=== PATIENT | male | born 1990 | race African-American/Black ===

== ENCOUNTER 2017-07-31 17:01 | Emergency (ER) | payer MEDICAID ==
[~2017-07-31] VITALS: Ht 180.3 cm; Wt 111.1 kg
[~2017-07-31 17:01] MED LIST: ALBU-136 IH
[2017-07-31 18:36] VITALS: BP 147/59
--- NOTE | 2017-07-31 20:02 | NUR ---
PT AMBULATED TO ER BED 05
--- NOTE | 2017-07-31 20:10 | NUR ---
Patient being evaluated by DR. MOYA at bedside.
[2017-07-31] MEDS ORDERED: IPRATROPIUM 0.02% 0.5 MG/2.5 ML NEBU INH ONE (20:15)
[2017-07-31] MEDS ORDERED: predniSONE 20 MG TAB PO ONE (20:15)
[2017-07-31] MEDS ORDERED: ALBUTEROL 0.083% 2.5 MG/3 ML NEBU INH ONE (20:15)
--- NOTE | 2017-07-31 20:25 | NUR ---
26Y/M PT. PRESENTS TO ED WITH C/O COUGH X3 DAYS. PT. STATES COUGH WITH FEVER, HX. ASTHMA. AAO X4, AMBULATORY WITH STEADY GAIT. RESPIRATION SROOM AIR, EVEN AND UNLABORED, BL LUNGS CLEAR. C/O PRODUCTIVE COUGH. NO S/SX OF DISTRESS AT THIS TIME. VSS, ER MADE AWARE OF PT. STATUS.
[2017-07-31 21:18] VITALS: BP 123/70
--- NOTE | 2017-07-31 21:19 | NUR ---
Patient discharged with v/s stable. Written and verbal after care instructions given and explained. Patient alert, oriented and verbalized understanding of instructions. Ambulatory with steady gait. All questions addressed prior to discharge. ID band removed. Patient advised to follow up with PMD. Rx of PREDNISONE 20 MG, PROMETHAZINE 6.25 MG/5ML given. Patient educated on indication of medication including possible reaction and side effects. Opportunity to ask questions provided and answered.
== END 2017-07-31 21:19 | disposition home or self-care (01) ==
LOC: MED 17:10
DX: J45.909 Unspecified asthma, uncomplicated (principal); J06.9 Acute upper respiratory infection, unspecified; R03.0 Elevated blood-pressure reading, without diagnosis of hypertension
CPT/HCPCS: 99283; J7512; J7613; J7644; 94640

== ENCOUNTER 2018-01-22 18:01 | Emergency (ER) | payer MEDICAID ==
[~2018-01-22] VITALS: Ht 180.3 cm; Wt 113.4 kg
[2018-01-22 18:08] VITALS: BP 116/70
[2018-01-22] MEDS ORDERED: predniSONE 20 MG TAB PO ONE (18:35)
[2018-01-22] MEDS ORDERED: ALBUTEROL SULFATE/IPRATROPIU 3 ML SOL IH ONE (18:35)
--- NOTE | 2018-01-22 18:50 | NUR ---
27m bib self with c/o mild sob with cough congestion. Clear speech. Able to talk in full sentences. No acute resp distress noted. RR are tachynpenic and unlabored. Pulse ox=99%. Pt is aox4 with steady gait. Skin is warm/dry/color appriopriate for ethnicity. NO acute distress. All need met at this time. Will continue to monitor.
[2018-01-22 19:25] VITALS: BP 118/72
--- NOTE | 2018-01-22 19:25 | NUR ---
Patient discharged with v/s stable. Written and verbal after care instructions given and explained. Patient alert, oriented and verbalized understanding of instructions. Ambulatory with steady gait. All questions addressed prior to discharge. ID band removed. Patient advised to follow up with PMD. Rx of Prednsione, Albuterol Sulfate, Minielite standard compressor nebulizer system, and azithromycin given. Patient educated on indication of medication including possible reaction and side effects. Opportunity to ask questions provided and answered.
== END 2018-01-22 19:25 | disposition home or self-care (01) ==
LOC: MED 18:01
DX: J45.909 Unspecified asthma, uncomplicated (principal); Z79.899 Other long term (current) drug therapy
CPT/HCPCS: 94640; 99283; J7512; J7620

== ENCOUNTER 2019-09-25 09:09 | Emergency (ER) | payer MEDICAID ==
[~2019-09-25] VITALS: Ht 182.9 cm; Wt 113.4 kg
[2019-09-25 09:13] VITALS: BP 137/64
--- NOTE | 2019-09-25 09:19 | NUR ---
29/M BIB SELF W/ C/O RT KNEE PAIN AFTER WORKING OUT YESTERDAY. PAIN WORSE TODAY 8/10 ON AMBULATION. DENIES INJURY, DENIES TWISTING MOTION WHILE WORKING OUT, DENIES SWELLING. TOOK TYLENOL LAST NIGHT WHICH HELPED BUT WOKE UP THIS AM WITH WORSENING THROBBING PAIN. AMB EVEN STEADY GAIT. NO OBVIOUS DEFORMITY. VSS; BEDRAILS UP X1; ERMD TO EVALUATE. HX: ASTHMA
--- NOTE | 2019-09-25 09:21 | NUR ---
DR. ROCHE EVALUATING PT AT BEDSIDE
[2019-09-25 09:44] VITALS: BP 137/64
--- NOTE | 2019-09-25 09:44 | NUR ---
Patient discharged with v/s stable. Written and verbal after care instructions given and explained. Patient alert, oriented and verbalized understanding of instructions. Ambulatory with CRUTCHES. All questions addressed prior to discharge. ID band removed. Patient advised to follow up with PMD. Rx of NAPROSYN given. Patient educated on indication of medication including possible reaction and side effects. Opportunity to ask questions provided and answered.
== END 2019-09-25 09:44 | disposition home or self-care (01) ==
LOC: MED 09:09
DX: S89.91XA Unspecified injury of right lower leg, initial encounter (principal); J45.909 Unspecified asthma, uncomplicated; Z79.899 Other long term (current) drug therapy; X58.XXXA Exposure to other specified factors, initial encounter; Y93.B9 Activity, other involving muscle strengthening exercises; Y92.89 Other specified places as the place of occurrence of the external cause; Y99.8 Other external cause status
CPT/HCPCS: 99282

== ENCOUNTER 2022-09-05 09:48 | Emergency (ER) | payer MEDICAID ==
[~2022-09-05] VITALS: Ht 180.3 cm; Wt 124.7 kg
[~2022-09-05 09:48] MED LIST changes: +ALBU-118 IH; -ALBU-136 IH
[2022-09-05 09:53] VITALS: BP 156/86
--- NOTE | 2022-09-05 11:43 | NUR ---
31 Y/O MALE C/O LEFT KNEE PAIN S/P BASKETBALL INJURY X3DAYS, PAIN ON AREA. DENIES PAIN IN OTHER PARTS OF THE EXTREMITY, PT IS ABLE TO AMBULATE WITH PAIN. pmh: asthma nka med: denies
[2022-09-05] MEDS ORDERED: IBUP-2213 PO (12:07)
--- NOTE | 2022-09-05 12:16 | NUR ---
MCKENZIE WRAP TO L KNEE X 1.
== END 2022-09-05 12:22 | disposition home or self-care (01) ==
LOC: MED 09:48
DX: S86.812A Strain of other muscle(s) and tendon(s) at lower leg level, left leg, initial encounter (principal); J45.909 Unspecified asthma, uncomplicated; Z79.899 Other long term (current) drug therapy; W50.0XXA Accidental hit or strike by another person, initial encounter; Y93.89 Activity, other specified; Y92.89 Other specified places as the place of occurrence of the external cause; Y99.8 Other external cause status
CPT/HCPCS: 73562; 99283